=== PATIENT | female | born 1975 | race American Indian/Alaskan Native ===

== ENCOUNTER 2016-08-21 09:00 | Outpatient (CLI) | payer OTHER | END 2016-08-21 09:01 | disposition home or self-care (01) | LOC: CARD 09:00 | PROVIDERS: ATTEND Internal Medicine Hematology & Oncology | DX: C50.212 Malignant neoplasm of upper-inner quadrant of left female breast (principal) | CPT/HCPCS: 93306 ==

== ENCOUNTER 2016-08-26 09:42 | Day surgery (SDC) | payer OTHER ==
--- NOTE | 2016-08-26 12:04 | History and Physical Report ---
History of Present Illness Date of examination: 08/26/16 Chief complaint: sob History of present illness: recurrent lt. effusions Medications and Allergies Allergies Allergy/AdvReac Type Severity Reaction Status Date / Time No Known Allergies Allergy Verified 07/30/16 12:15 Home Medications Medication Instructions Recorded Confirmed Last Taken Type Amoxicillin [Amoxicillin] 500 mg PO Q6HR 08/26/16 08/26/16 08/25/16 History Ergocalciferol (Vitamin D2) 50,000 units PO 3XW 08/26/16 08/26/16 08/22/16 History [Vitamin D2] Ibuprofen [Motrin 800 MG tab] 800 mg PO DAILY PRN 08/26/16 08/26/16 08/23/16 History Potassium 25 meq PO DAILY 08/26/16 08/26/16 08/23/16 History Exam Vital Signs Temp Pulse Resp BP Pulse Ox 97.0 F L 105 H 17 117/80 95 08/26/16 10:17 08/26/16 10:17 08/26/16 10:17 08/26/16 10:17 08/26/16 10:17
--- NOTE | 2016-08-26 12:06 | Procedure Note ---
Date of procedure: 08/26/16 Pre-op diagnosis: lt. pleural effusion Post-op diagnosis: same Procedure: lt. thoracentesis Findings: non bloody fluid Anesthesia: local Surgeon: SARWAT DALY Estimated blood loss: none Pathology: none Specimen disposition: discarded Condition: stable Disposition: observation
--- NOTE | 2016-08-26 12:14 | Ultrasound Report ---
Left thoracentesis: Ultrasound over the area of concern in the left chest posteriorly demonstrates a pleural fluid collection. The skin was marked, cleansed, and 1% lidocaine used for local anesthesia. A small skin sam was made through which a 5 [place] [employer] catheter was successfully placed into the pleural collection. 500 cc of clear fluid was successfully removed without apparent complication.
--- NOTE | 2016-08-26 13:01 | XRay Report ---
Portable chest: The there is an opacity at the left lung base with a meniscus contour extending to the lateral chest wall. There is a focal mass projecting behind the heart. There is a general increase bronchovascular pattern throughout both lungs. A right [id number] is present entering the jugular vein. These findings are similar to the prior study. No evidence of pneumothorax. Impression: No recent change. Left pleural effusion/fibrosis in left lower lobe mass.
[2016-08-26 13:27] VITALS: BP 115/79
== END 2016-08-26 13:40 | disposition home or self-care (01) ==
LOC: OPU 09:42 → EDSTATUS 12:00 → OPU 13:40
PROVIDERS: ATTEND Specialist
DX: J90 Pleural effusion, not elsewhere classified (principal); C50.919 Malignant neoplasm of unspecified site of unspecified female breast
CPT/HCPCS: 32555; 71010

== ENCOUNTER 2016-10-23 11:07 | Day surgery (SDC) | payer OTHER, MEDICAID ==
[2016-10-23 11:55] LABS: Basophils % (Auto) 0.9 % (0.0-1.8); Eosinophils % (Auto) 0.7 % (0.0-4.3); Hematocrit 36.8 % (30.3-42.9); Hemoglobin 12.1 gm/dl (10.1-14.3); Mean Corpuscular HGB Conc 33 % (30-34); Mean Corpuscular Hemoglobin 26 pg (28-32); Mean Corpuscular Volume 80 fl (79-97); Platelet Count 426 K/mm3 (140-440); Red Blood Count 4.59 M/mm3 (3.65-5.03); White Blood Count 6.4 K/mm3 (4.5-11.0)
[2016-10-23 12:05] LABS: INR 1.04 (0.87-1.13)
[2016-10-23] MEDS ORDERED: FLUSH HEPARIN IV ONE (13:27)
[2016-10-23] MEDS ORDERED: NORCO 5/325 ONE (14:32)
[2016-10-23] MEDS ORDERED: NORCO 5/325 PO ONE (15:00)
--- NOTE | 2016-10-23 15:04 | Ultrasound Report ---
ULTRASOUND THORACENTESIS INDICATION: Malignant pleural effusion. Metastatic breast cancer. COMPARISON: None similar. FINDINGS: Ultrasound guided left thoracentesis performed. Written informed consent obtained after explaining the risks and benefits. Patient brought in the ultrasound room. An appropriate skin site marked. Using standard sterile precautions and 1% lidocaine for local anesthesia, 5 [place] Yueh catheter advanced into the pleural fluid. Total of approximately 800 cc of yellow serous fluid obtained with no sample sent to the lab. Catheter removed and hemostasis achieved. Patient returned to [facility]. No immediate complications. CONCLUSION: Status post left thoracentesis, as described. A 1 hour post procedure chest x-ray ordered. Dr. Keith present for and performed the entire procedure. Thank you for the opportunity to participate in this patient's care.
--- NOTE | 2016-10-23 15:10 | Short Stay Summary ---
Short Stay Documentation Date of service: 10/23/16 - History Past Medical History: cancer (Metastatic Breast CA) Past Surgical History: mastectomy, Other (Breast reconstruction) - Allergies and Medications Current Medications: Allergies No Known Allergies Allergy (Verified 07/30/16 12:15) Home Medications Medication Instructions Recorded Confirmed Last Taken Type Amoxicillin [Amoxicillin] 500 mg PO Q6HR 08/26/16 08/26/16 08/25/16 History Ergocalciferol (Vitamin D2) 50,000 units PO 3XW 08/26/16 08/26/16 08/22/16 History [Vitamin D2] Ibuprofen [Motrin 800 MG tab] 800 mg PO DAILY PRN 08/26/16 08/26/16 08/23/16 History Potassium 25 meq PO DAILY 08/26/16 08/26/16 08/23/16 History - Physical exam General appearance: cachectic, disheveled Lungs: Other (Cough) - Brief post op/procedure progress note Date of procedure: 10/23/16 Pre-op diagnosis: Pleural Effusion Post-op diagnosis: same Procedure: US guided Lt Thoracentesis Anesthesia: local Findings: 800 cc yellow serous fluid removed. Surgeon: EDY ANTONIO Estimated blood loss: none Specimen disposition: discarded Condition: stable - Disposition Condition at discharge: Stable Disposition: DISCHARGED TO HOME OR SELFCARE Short Stay Discharge Plan
[2016-10-23 15:23] VITALS: BP 120/93
--- NOTE | 2016-10-27 07:20 | XRay Report ---
PORTABLE CHEST INDICATION: Status post left thoracentesis. COMPARISON: 08/26/2016 FINDINGS: Portable, frontal chest radiograph again demonstrates poorly delineated cardiomediastinal silhouette with patient rotation to the left and diffuse bilateral pneumonias with greatest consolidation/opacity at the left lung base. Right chest port and multiple left-sided surgical clips from mastectomy/breast reconstruction again noted. Stable bones. CONCLUSION: No acute complication following left thoracentesis with various other findings, as above. Thank you for the opportunity to participate in this patient's care.
== END 2016-10-23 16:30 | disposition home or self-care (01) ==
LOC: OPU 11:07 → EDSTATUS 12:00 → OPU 16:30
PROVIDERS: ATTEND Specialist
DX: J91.0 Malignant pleural effusion (principal); Z85.3 Personal history of malignant neoplasm of breast; Z98.890 Other specified postprocedural states
CPT/HCPCS: 32555; 36415; 71010; 85025; 85610; J1642

== ENCOUNTER 2016-11-04 07:04 | Day surgery (SDC) | payer OTHER, MEDICAID ==
[2016-11-04 08:01] LABS: Basophils % (Auto) 0.6 % (0.0-1.8); Eosinophils % (Auto) 0.5 % (0.0-4.3); Hematocrit 37.1 % (30.3-42.9); Hemoglobin 12.1 gm/dl (10.1-14.3); Mean Corpuscular HGB Conc 33 % (30-34); Mean Corpuscular Hemoglobin 26 pg (28-32); Mean Corpuscular Volume 80 fl (79-97); Platelet Count 507 K/mm3 (140-440); Red Blood Count 4.65 M/mm3 (3.65-5.03); Red Cell Distribution Width 19.2 % (13.2-15.2); White Blood Count 7.4 K/mm3 (4.5-11.0)
[2016-11-04 08:10] LABS: INR 0.94 (0.87-1.13)
[2016-11-04] MEDS ORDERED: NORCO 5/325 PO ONE (10:30)
--- NOTE | 2016-11-04 10:55 | Short Stay Summary ---
Short Stay Documentation Date of service: 11/04/16 - History Principal diagnosis: breast cancer, malignant left pleural effusion H&P: obtained from office Past Medical History: cancer - Allergies and Medications Current Medications: Allergies No Known Allergies Allergy (Verified 07/30/16 12:15) Home Medications Medication Instructions Recorded Confirmed Last Taken Type Amoxicillin [Amoxicillin] 500 mg PO Q6HR 08/26/16 11/04/16 11/03/16 History Ergocalciferol (Vitamin D2) 50,000 units PO 3XW 08/26/16 11/04/16 11/03/16 History [Vitamin D2] Ibuprofen [Motrin 800 MG tab] 800 mg PO DAILY PRN 08/26/16 11/04/16 11/03/16 History Potassium 25 meq PO DAILY 08/26/16 11/04/16 11/03/16 History - Physical exam General appearance: mild distress Lungs: Clear to auscultation Heart: Regular rate - Brief post op/procedure progress note Date of procedure: 11/04/16 Pre-op diagnosis: left pleural effusion Post-op diagnosis: same Procedure: US left thoracentesis Anesthesia: local Surgeon: MICHELLE RAMOS Estimated blood loss: none Pathology: none Specimen disposition: discarded Condition: stable - Disposition Condition at discharge: Good Disposition: DISCHARGED TO HOME OR SELFCARE
--- NOTE | 2016-11-04 10:57 | Ultrasound Report ---
ULTRASOUND THORACENTESIS History: Breast cancer, malignant left pleural effusion Description of procedure: Informed consent was obtained sterile technique was utilized. 1% lidocaine for skin anesthesia. Using ultrasound guidance, a 5 [place] centesis needle was advanced into the left pleural space. There was spontaneous return of yellow, slightly cloudy fluid. 700 cc of fluid was aspirated and discarded. No complications. Impression: Successful ultrasound-guided left thoracentesis as described.
--- NOTE | 2016-11-04 11:54 | XRay Report ---
AP CHEST History: Left pleural effusion, recent left thoracentesis. Findings: Recent ultrasound-guided left thoracentesis was performed in which 700 cc of fluid was removed. A small left pleural effusion persists. There is no evidence for pneumothorax. Bilateral congestive changes are noted. Heart size is grossly normal. A right [id number] is in position. Impression: Decreased left pleural effusion. No pneumothorax.
[2016-11-04 16:56] VITALS: BP 118/80
== END 2016-11-04 12:45 | disposition home or self-care (01) ==
LOC: OPU 07:04 → EDSTATUS 07:30 → OPU 12:45
PROVIDERS: ATTEND Specialist
DX: J91.0 Malignant pleural effusion (principal); Z85.3 Personal history of malignant neoplasm of breast
CPT/HCPCS: 32555; 36415; 71010; 85025; 85610